=== PATIENT | female | born 1945 | race Caucasian/White ===

== ENCOUNTER → 2023-01-07 14:55 | Outpatient (REF) | payer MEDICARE, SELFPAY ==
--- NOTE | 2023-01-07 15:02 | CA_ITS ---
Transthoracic Echocardiogram Patient (Last, First, Middle): Veronika Gould, Gender: Female Date of : 1945 Age: 77 Procedure Date: 01/07/2023 Procedure Type: Transthoracic Echocardiogram Location: [facility] Height: 170.18 cm Weight: 57.15 kg BSA: 1.66 m2 Heart Rate: 76 bpm BP: 110 / 60 mmHg Rat Trapper: RASHIDA Hui MD: Elsy Donnelly MD Software Lead: Rafael Mane MD Symptoms: R06.02 SOB Study Quality: Adequate ECG Rhythm: Sinus with extra beats Conclusions: - 1. Normal LV systolic function with grade 1 diastolic dysfunction 2. Mild mitral regurgitation 3. Normal RV systolic pressure 4. No gross pericardial effusion Findings Left Ventricle Normal left ventricular size, thickness, and systolic function. The visually estimated ejection fraction is between 65-70%. Spectral Doppler is indicative of an impaired relaxation filling pattern. E/E prime ratio is <8, consistent with normal filling pressures. Evidence suggests grade I (mild) diastolic dysfunction. Right Ventricle Normal right ventricular cavity size and systolic function. Atria Both atria are normal in size. There is no evidence of interatrial shunt. Aortic Valve Normal aortic valve structure and function. There is no aortic valve stenosis. There is no aortic valve regurgitation. Mitral Valve There is mild anterior and posterior mitral leaflet thickening. There is mild mitral valve regurgitation. There is no mitral valve stenosis. Pulmonic Valve The pulmonic valve was not well visualized. Tricuspid Valve Normal tricuspid valve structure. There is mild tricuspid valve regurgitation. The right ventricular systolic pressure is normal. The right ventricular systolic pressure is 25 mmHg. Normal right atrial pressure. There is no evidence of pulmonary hypertension. Great Vessels All visible segments of the aorta are normal in size. The pulmonary artery was not well visualized. Venous The inferior vena cava is normal in size and collapses greater than 50% with inspiration. Pericardium/Pleural There is no evidence of pericardial effusion. Prior Study Comparison No prior study available for comparison. Measurements 2D Linear Measurements IVSd: 0.93 0.6-0.9/0.6-1.0 cm LVIDd: 4.55 3.9-5.3/4.2-5.9 cm LVIDd Index: 2.74 2.4-3.2/2.2-3.1 cm/m2 LVIDs: 3.53 2.0-3.6 cm LVPWd: 0.70 0.7-1.1 cm LA Diam: 3.50 2.7-3.8/3.0-4.0 cm LAIDs Index: 2.11 1.5-2.3 cm/m2 LV Mass: 146.67 67-162/88-224 g LV Mass Index: 88.36 43-95/49-115 g/m2 LVOT Diam: 2.00 3.0+(-)1.3 cm 2D Systolic Function EF 4C: 65.00 >55% EF 2C: 78.00 >55% EF BiP: 71.90 >55% Mitral Valve MV Pk E: 0.66 MV PK A: 0.64 MV Decel Time: 207.00 E/A: 1.00 E'Lateral: 7.29 E'Medial: 5.33 E/E' Med: 12.40 E/E' Lat: 9.10 PHT: 61.00 MVA PHT: 3.61 Decel [place]: 3.19 Aortic Valve AoV Pk Raman: 1.20 AoV Mn Raman: 0.87 AoV VTI: 0.29 AoV Pk Grad: 6.00 Aov Mn Grad: 4.00 KAYLIN Cont.VTI: 2.15 LVOT LVOT Pk Raman: 0.89 LVOT Mn Raman: 0.63 LVOT VTI: 0.20 LVOT Pk Grad: 3.00 LVOT Mn Grad: 2.00 LVOT Diam: 2.00 LVOT Area: 3.14 Diastolic Function MV Pk E: 0.66 MV Pk A: 0.64 E/A: 1.00 E'Medial: 5.33 E/E' Med: 12.40 E' Laterial: 7.29 E/E' Lat: 9.10 Right Ventricle TAPSE (mm): 25.40 TVS' Raman: 13.20 Tricuspid Valve TR Pk Raman: 2.35 TR Pk Grad: 22.00 RA Press: 3.00 RVSP: 25.00 Great Vessels Aorta Sinus of Valsalva: 3.40 2.0-3.5 cm Ao Asc: 3.30 2.1-3.4 cm Pulmonary Valve PV Pk Raman: 1.13 Peak PV Grad: 5.00 Updated in Other Vendor System with Status of Final Rafael Mane MD electronically signed on 01/08/2023 6:14:03 PM with status of Final
== END ==
LOC: HO.CARD 14:55
PROVIDERS: Visit Provider Family Medicine
DX: R06.02 Shortness of breath (principal)
CPT/HCPCS: 93306